=== PATIENT | female | born 1980 | race Caucasian/White ===

== ENCOUNTER 2016-08-07 23:06 | Emergency (ER) | payer OTHER ==
[~2016-08-07] VITALS: Ht 172.7 cm; Wt 161.0 kg
[~2016-08-07 23:06] MED LIST: ATENOLOL50 MG PO; COZAAR 50MG50 MG/TAB PO; IRON325 M2 PO; LOPRESSOR 550 MG/TAB PO; LOVENOX 6060 MG/0.6 SQ; MULTI VITAMINS1 TAB PO; ROXICODONE 55 MG/TAB PO
[2016-08-07 23:20] VITALS: TEMP 98.8
[2016-08-07 23:33] LABS: BASO # 0.1 (0.0-0.2); BASO % 0.5 % (0.0-2.0); EOS # 0.3 (0.0-0.7); EOS % 3.4 % (0-4.0); GRAN # 5.7 (1.4-6.5); GRAN % 56.1 % (42.2-75.2); HEMATOCRIT 41.8 % (37.0-47.0); HEMOGLOBIN 13.3 g/dl (12.5-16.0); LYMPH # 3.2 (1.2-3.4); LYMPH % 31.3 % (20.0-51.0); MEAN CELL VOLUME 80 fl (80.0-100.0); MEAN CORPUSCULAR HEMOGLOBIN 26 pg (27.0-31.0); MEAN CORPUSCULAR HGB CONC 32 g/dl (33.0-37.0); MEAN PLATELET VOLUME 11.8 fl (7.4-10.4); MONO # 0.9 (0.1-0.6); MONO % 8.5 % (1.7-9.3); PLATELET COUNT 232 K/mm3 (130-400); REDCELL DISTRIBUTION WIDTH-CV 13.6 % (11.5-14.5); WHITE BLOOD COUNT 10.1 K/mm3 (4.8-10.8)
[2016-08-07 23:38] LABS: PROTHROMBIN TIME 11.6 SECONDS (9.7-12.8)
[2016-08-07 23:41] LABS: PARTIAL THROMBOPLASTIN TIME 33.7 SECONDS (26.0-37.0)
[2016-08-07 23:50] LABS: ADJUSTED CALCIUM 9.3 mg/dL (8.4-10.2); ALANINE AMINOTRANSFERASE 32 U/L (9-52); ALBUMIN 4.2 gm/dL (3.5-5.0); ALKALINE PHOSPHATASE 82 U/L (50-136); ANION GAP 13 mmol/L (7-16); BILIRUBIN,TOTAL 0.8 mg/dL (0.0-1.0); BLOOD UREA NITROGEN 11 mg/dL (7-17); CALCIUM 9.5 mg/dL (8.4-10.2); CARBON DIOXIDE 28 mmol/L (22-30); CHLORIDE 102 mmol/L (98-107); CREATININE, serum 0.57 mg/dL (0.52-1.25); GLUCOSE 103 mg/dL (74-106); POTASSIUM 3.5 mmol/L (3.4-5.0); SODIUM 143 mmol/L (137-145); TOTAL PROTEIN 7.7 gm/dL (6.4-8.2)
[2016-08-08 00:03] LABS: TROPONIN-I < 0.012 ng/mL (0.000-0.034)
[2016-08-08 01:28] VITALS: BP 130/90; PULSE 112
== END 2016-08-08 01:32 | disposition short-term general hospital (02) ==
LOC: COL.ER 23:06
PROVIDERS: Emergency Medicine
DX: I48.91 Unspecified atrial fibrillation (principal); I10 Essential (primary) hypertension; F41.9 Anxiety disorder, unspecified; Z85.42 Personal history of malignant neoplasm of other parts of uterus
CPT/HCPCS: J1650; J7030; J7050

== ENCOUNTER 2016-08-13 23:29 | Emergency (ER) | payer OTHER ==
[~2016-08-13] VITALS: Ht 175.3 cm; Wt 151.8 kg
[2016-08-13 23:32] VITALS: TEMP 97.7
[2016-08-14] MEDS ORDERED: ELIQUIS 5MG PO (00:22)
[2016-08-14] MEDS ORDERED: TAMBOCOR50 MG PO (00:22)
[2016-08-14] MEDS ORDERED: CARDIZEM 90MG T90 MG PO (00:23)
[2016-08-14 00:25] LABS: BASO # 0.1 (0.0-0.2); BASO % 0.6 % (0.0-2.0); EOS # 0.4 (0.0-0.7); EOS % 4.2 % (0-4.0); GRAN # 6.5 (1.4-6.5); GRAN % 63.9 % (42.2-75.2); HEMATOCRIT 42.4 % (37.0-47.0); HEMOGLOBIN 14.2 g/dl (12.5-16.0); LYMPH # 2.5 (1.2-3.4); LYMPH % 25.1 % (20.0-51.0); MEAN CELL VOLUME 78 fl (80.0-100.0); MEAN CORPUSCULAR HEMOGLOBIN 26 pg (27.0-31.0); MEAN CORPUSCULAR HGB CONC 34 g/dl (33.0-37.0); MEAN PLATELET VOLUME 11.6 fl (7.4-10.4); MONO # 0.6 (0.1-0.6); MONO % 5.9 % (1.7-9.3); PLATELET COUNT 253 K/mm3 (130-400); RED BLOOD COUNT 5.43 M/mm3 (4.10-5.30); REDCELL DISTRIBUTION WIDTH-CV 13.6 % (11.5-14.5); WHITE BLOOD COUNT 10.1 K/mm3 (4.8-10.8)
[2016-08-14 00:29] LABS: CALCIUM 9.8 mg/dL (8.4-10.2); CREATININE, serum 0.61 mg/dL (0.52-1.25); MAGNESIUM 2.1 mg/dL (1.6-2.3); POTASSIUM 3.9 mmol/L (3.4-5.0)
[2016-08-14 01:46] VITALS: BP 124/88; PULSE 88
== END 2016-08-14 01:50 | disposition home or self-care (01) ==
LOC: COL.ER 23:29
PROVIDERS: Emergency Medicine
DX: I48.91 Unspecified atrial fibrillation (principal); Z79.01 Long term (current) use of anticoagulants
CPT/HCPCS: J7040

== ENCOUNTER 2016-08-21 09:09 | Day surgery (SDC) | payer OTHER ==
[~2016-08-21] VITALS: Ht 175.4 cm; Wt 156.8 kg
[2016-08-21] VITALS (8 sets, daily range): BP systolic 116–132; BP diastolic 74–79; PULSE 59–83; TEMP 98
[~2016-08-21 09:09] MED LIST changes: +CARDIZEM 90MG T90 MG PO; +ELIQUIS 5MG PO; +TAMBOCOR50 MG PO
[2016-08-21 10:00] LABS: HEMATOCRIT 41.7 % (37.0-47.0); HEMOGLOBIN 13.9 g/dl (12.5-16.0); MEAN CELL VOLUME 78 fl (80.0-100.0); MEAN CORPUSCULAR HEMOGLOBIN 26 pg (27.0-31.0); MEAN CORPUSCULAR HGB CONC 33 g/dl (33.0-37.0); MEAN PLATELET VOLUME 12.6 fl (7.4-10.4); PLATELET COUNT 219 K/mm3 (130-400); RED BLOOD COUNT 5.34 M/mm3 (4.10-5.30); REDCELL DISTRIBUTION WIDTH-CV 14.1 % (11.5-14.5)
[2016-08-21 10:06] LABS: INR 1.7 (0.8-3.0); PROTHROMBIN TIME 18.8 SECONDS (9.7-12.8)
[2016-08-21 10:18] LABS: CALCIUM 9.1 mg/dL (8.4-10.2); CREATININE, serum 0.56 mg/dL (0.52-1.25); POTASSIUM 5.2 mmol/L (3.4-5.0)
== END 2016-08-21 14:56 | disposition home or self-care (01) ==
LOC: COL.CAR 09:09
PROVIDERS: Internal Medicine Cardiovascular Disease
DX: I48.0 Paroxysmal atrial fibrillation (principal); I08.1 Rheumatic disorders of both mitral and tricuspid valves; I10 Essential (primary) hypertension
CPT/HCPCS: G9654; J2250; J2704

== ENCOUNTER 2016-10-02 14:27 | Emergency (ER) | payer OTHER ==
[~2016-10-02] VITALS: Ht 175.3 cm; Wt 155.9 kg
[2016-10-02 14:28] VITALS: BP 142/67; PULSE 63; TEMP 98.2
[2016-10-02] MEDS ORDERED: PRIL40 PO (14:42)
== END 2016-10-02 16:13 | disposition home or self-care (01) ==
LOC: COL.ER 14:27
DX: G43.909 Migraine, unspecified, not intractable, without status migrainosus (principal)
CPT/HCPCS: J2550; J3030

== ENCOUNTER 2016-10-05 09:14 | Emergency (ER) | payer OTHER ==
[~2016-10-05] VITALS: Ht 175.3 cm; Wt 155.9 kg
[~2016-10-05 09:14] MED LIST changes: +PRIL40 PO
[2016-10-05 09:16] VITALS: TEMP 99.2
[2016-10-05 09:50] LABS: BASO % 0.5 % (0.0-2.0); EOS # 0.3 (0.0-0.7); EOS % 3.5 % (0-4.0); GRAN # 5.5 (1.4-6.5); GRAN % 67.2 % (42.2-75.2); LYMPH # 1.7 (1.2-3.4); MEAN CELL VOLUME 81 fl (80.0-100.0); MEAN CORPUSCULAR HGB CONC 33 g/dl (33.0-37.0); MEAN PLATELET VOLUME 11.8 fl (7.4-10.4); MONO # 0.6 (0.1-0.6); MONO % 7.4 % (1.7-9.3); PLATELET COUNT 192 K/mm3 (130-400); RED BLOOD COUNT 4.39 M/mm3 (4.10-5.30); REDCELL DISTRIBUTION WIDTH-CV 13.8 % (11.5-14.5); WHITE BLOOD COUNT 8.2 K/mm3 (4.8-10.8)
[2016-10-05 09:56] LABS: HEMATOCRIT 35.6 % (37.0-47.0); HEMOGLOBIN 11.7 g/dl (12.5-16.0); MEAN CORPUSCULAR HEMOGLOBIN 27 pg (27.0-31.0)
[2016-10-05 10:06] LABS: ADJUSTED CALCIUM 8.8 mg/dL (8.4-10.2); ALBUMIN 3.8 gm/dL (3.5-5.0); BILIRUBIN,TOTAL 1.2 mg/dL (0.0-1.0); C-REACTIVE PROTEIN 3.4 mg/dL (0.0-0.9); CALCIUM 8.6 mg/dL (8.4-10.2); CREATININE, serum 0.55 mg/dL (0.52-1.25); POTASSIUM 3.8 mmol/L (3.4-5.0)
[2016-10-05 10:30] VITALS: BP 127/57; PULSE 57
== END 2016-10-05 10:31 | disposition home or self-care (01) ==
LOC: COL.ER 09:14
PROVIDERS: Emergency Medicine
DX: G43.909 Migraine, unspecified, not intractable, without status migrainosus (principal); H53.453 Other localized visual field defect, bilateral; I48.91 Unspecified atrial fibrillation; I10 Essential (primary) hypertension; Z79.01 Long term (current) use of anticoagulants
CPT/HCPCS: J1200; J1885; J2405; J7030

== ENCOUNTER → 2016-10-13 | Outpatient (CLI) | payer OTHER | LOC: COL.RAD 09:45 | DX: H55.00 Unspecified nystagmus (principal); R51 Headache; Z98.890 Other specified postprocedural states ==

== ENCOUNTER → 2017-02-12 | Outpatient (CLI) | payer BC ==
[~2017-02-12] VITALS: Ht 175.3 cm; Wt 147.3 kg
[2017-02-12 08:25] VITALS: BP 145/84; PULSE 61
[2017-02-12 09:51] VITALS: BP 140/82; PULSE 59
== END ==
LOC: COL.RAD 02-04 13:30
DX: M54.5 Low back pain (principal)
CPT/HCPCS: J3301

== ENCOUNTER → 2017-04-26 | Outpatient (CLI) | payer BC | LOC: MC.RAD 14:13 | DX: N63.10 Unspecified lump in the right breast, unspecified quadrant (principal); Z80.3 Family history of malignant neoplasm of breast; Z85.42 Personal history of malignant neoplasm of other parts of uterus ==

== ENCOUNTER → 2017-05-04 | Outpatient (CLI) | payer BC | LOC: MC.RAD 08:00 | DX: N63.13 Unspecified lump in the right breast, lower outer quadrant (principal); Z80.3 Family history of malignant neoplasm of breast; Z85.42 Personal history of malignant neoplasm of other parts of uterus ==

== ENCOUNTER → 2018-04-22 | Outpatient (CLI) | payer BC, OTHER | LOC: COL.RAD 12:59 | DX: M79.89 Other specified soft tissue disorders (principal) ==

== ENCOUNTER → 2019-10-18 | Outpatient (CLI) | payer BC | LOC: ZCOL.LAB 07:47 | DX: R50.9 Fever, unspecified (principal); R05 Cough; Z20.828 Contact with and (suspected) exposure to other viral communicable diseases ==

== ENCOUNTER → 2020-02-08 | Outpatient (CLI) | payer BC | LOC: ZCOL.LAB 15:42 | DX: U07.1 COVID-19 (principal) ==

== ENCOUNTER → 2020-04-17 | Outpatient (CLI) | payer BC | LOC: MC.RAD 08:45 | DX: Z12.31 Encounter for screening mammogram for malignant neoplasm of breast (principal) ==